=== PATIENT | female | born 1960 | race Caucasian/White ===

== ENCOUNTER 2018-06-15 09:34 | Outpatient (CLI) | payer OTHER | END 2018-06-15 21:13 | disposition home or self-care (01) | LOC: SUS 09:34 | PROVIDERS: ATTEND Family Medicine | DX: N64.89 Other specified disorders of breast (principal) | CPT/HCPCS: 76641 ==

== ENCOUNTER 2019-12-03 09:09 | Emergency (ER) | payer OTHER ==
[~2019-12-03] VITALS: Ht 160 cm; Wt 58.1 kg
[2019-12-03 09:30] VITALS: BP_SYST 128
[2019-12-03] MEDS ORDERED: KETOROLAC TROMETHAMINE 60 MG/2 ML VIAL IM ONE (10:15)
[2019-12-03 11:30] VITALS: BP_SYST 126
== END 2019-12-03 11:30 | disposition home or self-care (01) ==
LOC: SED 09:09
DX: M54.42 Lumbago with sciatica, left side (principal); F41.9 Anxiety disorder, unspecified
CPT/HCPCS: 81002; 99283; J1885